=== PATIENT | female | born 1950 | race Caucasian/White ===

== ENCOUNTER → 2018-02-23 | Outpatient (CLI) | payer MEDICARE ==
--- NOTE | 2018-02-24 14:12 | MM ---
Reason for exam: screening (asymptomatic). Last mammogram was performed 2 years and 4 months ago. History: Patient is postmenopausal and has history of endometrial cancer at age 32. Physical Findings: A clinical breast exam by your physician is recommended on an annual basis and results should be correlated with mammographic findings. MG Screening Mammo w CAD Bilateral CC and MLO view(s) were taken. Prior study comparison: November 07, 2015, bilateral MG screening mammo w CAD. July 15, 2014, bilateral MG screening mammo w CAD. There are scattered fibroglandular densities. There are benign appearing round diffuse and regional calcifications bilaterally. There is no discrete abnormality. ASSESSMENT: Benign, BI-RAD 2 RECOMMENDATION: Routine screening mammogram of both breasts in 1 year.
== END ==
LOC: RADMAMWWP 07:54
PROVIDERS: ATTEND Obstetrics & Gynecology
DX: Z12.31 Encounter for screening mammogram for malignant neoplasm of breast (principal)
CPT/HCPCS: 77067

== ENCOUNTER → 2018-04-26 | Outpatient (CLI) | payer MEDICARE ==
--- NOTE | 2018-04-27 06:05 | BD ---
EXAMINATION TYPE: Axial Bone Density DATE OF EXAM: 04/26/2018 COMPARISON: 11/02/2015 CLINICAL HISTORY: Postmenopausal female. Height: 67 IN Weight: 252 LBS FRAX RISK QUESTIONS: Secondary Osteoporosis: 3. Menopause before 45: YES PARTIAL HYST AGE 32 RISK FACTORS HISTORY OF: Active: YES Postmenopausal woman: AGE 32 PARTIAL HYST MEDICATIONS: Additional Medications: BLOOD PRESSURE MEDS, DOTERRA VITAMINS EXAM MEASUREMENTS: Bone mineral densitometry was performed using the [employer] System. Bone mineral density as measured about the Lumbar spine is: ----- L1-L4(G/cm2): 1.326 T Score Values are as follows: ----- L2: 1.3 ----- L3: 1.6 ----- L4: 1.6 ----- L1-L4: 1.2 Bone mineral density has: Decreased -2.1% since study of: 11/02/2015 Bone mineral density about the R hip (g/cm2): 0.892 Bone mineral density about the L hip (g/cm2): 0.805 T Score values are as follows: -----R Neck: -1.1 -----L Neck: -1.7 -----R Total: 0.3 -----L Total: 0.1 Bone mineral density has: Decreased -0.4% since study of: IMPRESSION: Osteopenia (T Score between -2.5 and -1) persists femoral neck level in both hips. There remains slightly increased risk of fracture and the patient may be considered for treatment. Re-Screen 2-5 years. NOTE: T-SCORE=SD OF THE YOUNG ADULT MEAN.
== END ==
LOC: RADBDWWP 15:34
PROVIDERS: ATTEND Obstetrics & Gynecology
DX: M85.852 Other specified disorders of bone density and structure, left thigh (principal); M85.851 Other specified disorders of bone density and structure, right thigh
CPT/HCPCS: 77080

== ENCOUNTER → 2019-12-27 | Outpatient (CLI) | payer MEDICARE ==
--- NOTE | 2019-12-29 14:23 | MM ---
Reason for exam: screening (asymptomatic). Last mammogram was performed 1 year and 10 months ago. History: Patient is postmenopausal and has history of endometrial cancer at age 32. Physical Findings: A clinical breast exam by your physician is recommended on an annual basis and results should be correlated with mammographic findings. MG Screening Mammo w CAD Bilateral CC and MLO view(s) were taken. Prior study comparison: February 23, 2018, bilateral MG screening mammo w CAD. November 07, 2015, bilateral MG screening mammo w CAD. There are scattered fibroglandular densities. No significant changes when compared with prior studies. ASSESSMENT: Negative, BI-RAD 1 RECOMMENDATION: Routine screening mammogram of both breasts in 1 year.
== END | disposition home or self-care (01) ==
LOC: RADMAMWWP 15:44
PROVIDERS: ATTEND Obstetrics & Gynecology
DX: Z12.31 Encounter for screening mammogram for malignant neoplasm of breast (principal)
CPT/HCPCS: 77067

== ENCOUNTER → 2021-09-05 | Outpatient (CLI) | payer MEDICARE ==
--- NOTE | 2021-09-06 07:58 | BD ---
EXAMINATION TYPE: Axial Bone Density DATE OF EXAM: 09/05/2021 COMPARISON: NONE CLINICAL HISTORY: 70 year old Female. ICD-10 CODE: M81.0 OSTEOPOROSIS Height: 68 Weight: 256.2 FRAX RISK QUESTIONS: Alcohol (3 or more units per day): no Family History (Parent hip fracture): no Glucocorticoids (More than 3mos): no (Ex: prednisone, prednisolone, methylprednisolone, dexamethasone, and hydrocortisone). History of Fracture in Adulthood: no Secondary Osteoporosis: 1. Type 1 Diabetes: no 2. Hyperthyroidism: no 3. Menopause before 45: yes 4. Malnutrition: no 5. Chronic liver disease: no Rheumatoid Arthritis: no Current Tobacco Use: no RISK FACTORS HISTORY OF: Surgery to Spine/Hip(right/left)/Wrist (right/left): no Family History of Osteoporosis: no Active: no Diet low in dairy products/other sources of calcium: yes Postmenopausal woman: yes Lost more than 2 inches in height since high school: no MEDICATIONS: trulicity, metformin, blood pressure meds Additional History: EXAM MEASUREMENTS: Bone mineral densitometry was performed using the [employer] System. Bone mineral density as measured about the Lumbar spine is: ----- L1-L4(G/cm2): 1.341 T Score Values are as follows: ----- L1: 0.3 ----- L2: 1.1 ----- L3: 1.9 ----- L4: 1.9 ----- L1-L4: 1.3 Bone mineral density has: increased 1.2 % since study of: 04.26.2018 Bone mineral density about the R hip (g/cm2): 0.841 Bone mineral density about the L hip (g/cm2): 0.792 T Score values are as follows: -----R Neck: -1.4 -----L Neck: -1.8 -----R Total: 0.2 -----L Total: -0.8 Bone mineral density has: decreased -1.7 % since study of: 04.26.2018 FRAX%s: The graph provided illustrates a 9.8% chance for a major osteoporotic fx and a 1.7% chance fo r the hips probability for fx in 10 years time. IMPRESSION: Osteopenia (T Score between -2.5 and -1). There is slightly increased risk of fracture and the patient may be considered for treatment. Re-Screen 2-5 years. NOTE: T-SCORE=SD OF THE YOUNG ADULT MEAN.
== END | disposition home or self-care (01) ==
LOC: RADMAMWWP 07:26
PROVIDERS: ATTEND Pediatrics
DX: Z12.31 Encounter for screening mammogram for malignant neoplasm of breast (principal); M81.0 Age-related osteoporosis without current pathological fracture; Z78.0 Asymptomatic menopausal state
CPT/HCPCS: 77063; 77067; 77080

== ENCOUNTER 2022-10-16 06:02 | Day surgery (SDC) | payer MEDICARE ==
[2022-10-10 13:11] VITALS: BMI 39.5
[2022-10-16] MEDS ORDERED: LIDOCAINE 1% (10MG/ML) FOR IV START INTRADERMA PRN (06:11)
[2022-10-16] MEDS ORDERED: LACTATED RINGERS 1,000 ML IV SCH (06:11)
[2022-10-16 06:50] LABS: Glucose,Whole Blood 125 mg/dL (70-110)
[2022-10-16 06:53] VITALS: TEMP 96.9
[2022-10-16] MEDS ORDERED: PROPOFOL 10 MG/ML 20 ML VIAL IV ONE (07:10)
[2022-10-16 07:29] LABS: African American GFR (CKD) 85 (>60 ml/min/1.73 sqM); Anion Gap 6 mmol/L; Blood Urea Nitrogen 18 mg/dL (7-17); Calcium 8.6 mg/dL (8.4-10.2); Carbon Dioxide 31 mmol/L (22-30); Chloride 103 mmol/L (98-107); Glucose 121 mg/dL (74-99); Non-African American GFR(CKD) 73 (>60 ml/min/1.73 sqM); Potassium 3.9 mmol/L (3.5-5.1); Sodium 140 mmol/L (137-145)
[2022-10-16] MEDS ORDERED: COLCHICINE 0.6 MG EACH PO PRN (07:29)
[2022-10-16] MEDS ORDERED: SODIUM CHLORIDE 0.9% 1,000 ML IV SCH (07:30)
--- NOTE | 2022-10-16 07:33 | P.PCN ---
Date of Procedure: 10/16/22 Description of Procedure: Indication: Atrial fibrillation Procedure Description: After explaining the procedure to the patient, it's risk and complications, blood pressure, heart rate and O2 saturation were monitored. The throat was sprayed with Cetacaine. Patient received sedation per anesthesia department. The probe was introduced into the esophagus without difficulty. Images were obtained. Following that, the probe was removed. There was no immediate complication. Findings: Left atrial size is mildly dilated, left atrial appendage is normal. Left ventricle size and systolic function are normal. The mitral valve revealed mild thickening of the leaflets. Aortic valve is a tricuspid valve with mild atherosclerotic changes. Tricuspid and pulmonic valve are normal. Descending thoracic aorta is normal. No pericardial effusion was noted. Contrast bubble study revealed no shunting across the interatrial septum. Doppler: Pulse wave and color Doppler were obtained, and revealed moderate mitral and tricuspid regurgitation. There was no evidence of shunting across the intra- atrial septum. Conclusion: 1. Mildly dilated left atrium with normal appearance of the left atrial appendage 2. Normal left ventricle size and systolic function 3. Moderate mitral and tricuspid regurgitation 4. No shunting across the intra-atrial septum 5. No pericardial effusion Cardioversion: After performing a JOHNNY and obtaining sedated state a synchronized biphasic cardioversion using 150 J was performed with faith of sinus mechanism, there is no immediate complications.
[2022-10-16 08:26] VITALS: BP 136/70; PULSE 67; RESP 16
[2022-10-16] MEDS ORDERED: metFORMIN 500 MG TAB PO SCH (12:30)
[2022-10-16] MEDS ORDERED: APIXABAN 5 MG TAB PO SCH (21:00)
[2022-10-16] MEDS ORDERED: METOPROLOL TARTRATE 25 MG TAB PO SCH (21:00)
[2022-10-17] MEDS ORDERED: LOSARTAN 25 MG TAB PO SCH (09:00)
[2022-10-17] MEDS ORDERED: metFORMIN 500 MG TAB PO SCH (09:00)
[2022-10-17] MEDS ORDERED: POTASSIUM CHLORIDE ER 10 MEQ TAB.ER.PRT PO SCH (09:00)
[2022-10-17] MEDS ORDERED: LINAGLIPTIN 5 MG TABLET PO SCH (09:00)
== END 2022-10-16 08:41 | disposition home or self-care (01) ==
LOC: OR 06:02
PROVIDERS: ATTEND Internal Medicine Interventional Cardiology
DX: I08.1 Rheumatic disorders of both mitral and tricuspid valves (principal); I70.0 Atherosclerosis of aorta; I48.21 Permanent atrial fibrillation; I10 Essential (primary) hypertension; E11.9 Type 2 diabetes mellitus without complications; M10.9 Gout, unspecified; F17.210 Nicotine dependence, cigarettes, uncomplicated; Z79.01 Long term (current) use of anticoagulants; Z79.84 Long term (current) use of oral hypoglycemic drugs; Z79.899 Other long term (current) drug therapy
CPT/HCPCS: 93312; 93320; 93325; 92960; 80048; J2704

== ENCOUNTER → 2023-03-20 | Outpatient (CLI) | payer MEDICARE ==
--- NOTE | 2023-03-24 11:38 | MM ---
Reason for Exam: Screening (asymptomatic). Last mammogram was performed 1 year(s) and 7 month(s) ago. Patient History: Menarche at age 12. First Full-Term at age 20. Left ovary removed at age 32. Right ovary removed at age 32. Hysterectomy at age 32. Postmenopausal. Endometrial cancer, age 32. Risk Values: Bharati 5 year model risk: 1.6%. NCI Lifetime model risk: 4.1%. Prior Study Comparison: 02/23/2018 Bilateral Screening Mammogram, [facility]. 12/27/2019 Bilateral Screening Mammogram, [facility]. 09/05/2021 Bilateral MG 3D screening mammo w/cad, [facility]. Tissue Density: The breast tissue is almost entirely fat. Findings: Analyzed By CAD. Pattern appears symmetrical and stable. Scattered benign-appearing calcifications are present bilaterally. No significant interval changes No suspicious groups of microcalcifications, spiculated or lobular masses, architectural distortion or other secondary signs of malignancy are mammographically apparent. Overall Assessment: Negative, BI-RAD 1 Management: Screening Mammogram of both breasts in 1 year. A negative mammogram report should not preclude additional follow up of suspicious palpable abnormalities. Patient should continue monthly self breast exam. A clinical breast exam by your physician is recommended on an annual basis and results should be correlated with mammographic findings. Electronically signed and approved by: Jun Day D.O. Radiologis
== END | disposition home or self-care (01) ==
LOC: RADMAMWWP 15:03
PROVIDERS: ATTEND Obstetrics & Gynecology
DX: Z12.31 Encounter for screening mammogram for malignant neoplasm of breast (principal); Z78.0 Asymptomatic menopausal state
CPT/HCPCS: 77067

== ENCOUNTER → 2023-08-17 | Outpatient (CLI) | payer MEDICARE ==
--- NOTE | 2023-08-20 22:56 | P.PCN ---
Date of Procedure: 08/17/23 Operative Findings: Home sleep study report Date of services 08/17/2023 72-year-old female patient with history of snoring referred to me for sleep apnea evaluation based on the fact that the patient also has history of paroxysmal atrial fibrillation. No hypersomnia or sleepiness during the day. She has gained around 30 pounds over the past 1.5 years. Home sleep study was ordered accordingly. No signs of any cardiomyopathy and her cardiac rhythm is currently sinus. Pertinent physical findings The patient's weight is 263 pounds with a height of 5 feet and 8 inches and a body mass index of 39.3. Her Chariton score is at 6 Technical description The [employer] ApneaLink system was used to complete this home sleep study. This type III home sleep study. Total recording duration was 6 hours and 53 minutes. The study started at 10:52 PM and ended at 5:45 AM. This was an adequate study as the patient had a total of 6041 minutes of flow and oxygen saturation evaluation Results The respiratory analysis showed a total of 15 obstructive apneas and 35 obstructive hypopneas. The resulting AHI was 7.5. No positional change in the severity of her disease Oxygenation analysis No significant nocturnal oxygen saturation encountered. The patient's baseline pulse ox was 96% on room air oxygen when awake. Average pulse ox during sleep was 92% and the lowest pulse ox was 80% and the patient spent only 19 minutes of the sleep time below pulse ox of 89% Cardiac summary The average heart rate was 72 with a minimum heart rate of 61 and a maximum heart rate of 85 Assessment Mild MARGOT with an AHI of 7.5 Mild nocturnal oxygen saturation no hypersomnia or sleepiness in the patient's Chariton score was 3 Obesity with a BMI of 39 PAF Hypertension Diabetes mellitus Plan This is a case of mild obstructive sleep apnea with an AHI of 7.5. Based on the severity of the illness and presence of limited oxygen saturations overnight, I do not think the patient's sleep apnea is any significant bearing on her paroxysmal atrial fibrillation nor has any effect on her cardiovascular health. As such, I do not see the need for CPAP therapy at this point in time especially the patient has no major hypersomnia or sleepiness and the patient is clinically asymptomatic. Recommend weight loss. Losing weight in order of 5 to 10% of her current body weight should help her with her snoring and further improve her mild obstructive sleep apnea. This should be implemented along with maintaining a regular sleep schedule and optimizing her sleep hygiene measures. Of interest, she may consider an oral appliance that should be able also to help with her mild case of MARGOT. In summary, do not see the need for CPAP therapy at this point and this can be reevaluated in a years time should her condition gets worse or her sleep quality becomes impaired.
== END ==
LOC: 3 N SLEEP 10:30
PROVIDERS: ATTEND Internal Medicine Critical Care Medicine
DX: G47.33 Obstructive sleep apnea (adult) (pediatric) (principal); E11.9 Type 2 diabetes mellitus without complications; G47.36 Sleep related hypoventilation in conditions classified elsewhere; E66.9 Obesity, unspecified; I10 Essential (primary) hypertension; I48.0 Paroxysmal atrial fibrillation; Z68.39 Body mass index [BMI] 39.0-39.9, adult; Z79.899 Other long term (current) drug therapy; Z79.84 Long term (current) use of oral hypoglycemic drugs; Z79.01 Long term (current) use of anticoagulants

== ENCOUNTER → 2024-05-09 | Outpatient (CLI) | payer MEDICARE ==
--- NOTE | 2024-05-09 15:01 | MM ---
Reason for Exam: Screening (asymptomatic). Last mammogram was performed 1 year(s) and 1 month(s) ago. Patient History: Menarche at age 12. First Full-Term at age 20. Left ovary removed at age 32. Right ovary removed at age 32. Hysterectomy at age 32. Postmenopausal. Endometrial cancer, age 32. Risk Values: Bharati 5 year model risk: 1.6%. NCI Lifetime model risk: 3.9%. Prior Study Comparison: 12/27/2019 Bilateral Screening Mammogram, [facility]. 09/05/2021 Bilateral MG 3D screening mammo w/cad, [facility]. 03/20/2023 Bilateral MG screening mammo w CAD, [facility]. Tissue Density: The breasts are almost entirely fatty. Findings: Analyzed By CAD. Right breast: There is no suspicious group of microcalcifications or new suspicious mass. Benign-appearing calcifications right breast. Left breast: There is no suspicious group of microcalcifications or new suspicious mass. Benign-appearing calcifications left breast. Overall Assessment: Benign, BI-RAD 2 Management: Screening Mammogram of both breasts in [address] [facility] will attempt to contact patient to return for supplemental views and ultrasound if indicated. Patient should continue monthly self-breast exams. A clinical breast exam by your physician is recommended on an annual basis. This exam should not preclude additional follow-up of suspicious palpable abnormalities. Note on Bharati scores and lifetime risk: 1. A Bharati score greater than 3% is considered moderate risk. If this is the case, consider specialist referral to assess eligibility for a risk reducing agent. 2. If overall lifetime risk for the development of breast cancer is 20% or higher, the patient may qualify for future screening with alternating mammogram and breast MRI. [facility], , 05/09/2024 2:58 PM. Electronically signed and approved by: Benji Szymanski DO
== END | disposition home or self-care (01) ==
LOC: RADMAMWWP 13:34
PROVIDERS: ATTEND Internal Medicine
DX: Z12.31 Encounter for screening mammogram for malignant neoplasm of breast (principal); Z78.0 Asymptomatic menopausal state; Z90.722 Acquired absence of ovaries, bilateral
CPT/HCPCS: 77063; 77067

== ENCOUNTER → 2024-10-26 | Outpatient (CLI) | payer MEDICARE ==
--- NOTE | 2024-10-26 12:08 | BD ---
EXAMINATION TYPE: Axial Bone Density DATE OF EXAM: 10/26/2024 CLINICAL HISTORY: 74 years old Female. ICD-10 CODE: Z78.0 ASYMPTOMATIC MENOPAUSAL STATE , Additional History: Height: 67.0 Weight: 251.0 FRAX RISK QUESTIONS: Alcohol (3 or more units per day): no Family History (Parent hip fracture): no Glucocorticoids (More than 3mos): no (Ex: prednisone, prednisolone, methylprednisolone, dexamethasone, and hydrocortisone). History of Fracture in Adulthood: no Secondary Osteoporosis: 1. Type 1 Diabetes: no 2. Hyperthyroidism: no 3. Menopause before 45: yes 4. Malnutrition: no 5. Chronic liver disease: no Rheumatoid Arthritis: no Current Tobacco Use: no RISK FACTORS HISTORY OF: Hip Fracture (Right/Left): no Spine Fracture: no History of Wrist Fracture: no Surgery to Spine/Hip(right/left)/Wrist (right/left): no MEDICATIONS: Thyroid Medications: no Osteoporosis Medications: no EXAM MEASUREMENTS: Bone mineral densitometry was performed using the [employer] System. Bone mineral density as measured about the Lumbar spine is: ----- L1-L4(G/cm2): 1.328 T Score Values are as follows: ----- L1: 0.6 ----- L2: 0.9 ----- L3: 1.9 ----- L4: 1.4 ----- L1-L4: 1.2 Z Score Values are as follows: ----- L1: 1.1 ----- L2: 1.4 ----- L3: 2.5 ----- L4: 2.0 ----- L1-L4: 1.8 Bone mineral density has: decreased -1.0 % since study of: 09/05/2021 Bone mineral density about the R hip (g/cm2): 1.002 Bone mineral density about the L hip (g/cm2): 1.010 T Score values are as follows: -----R Neck: -1.4 -----L Neck: -1.7 -----R Total: 0.0 -----L Total: 0.0 Z Score values are as follows: -----R Neck: -0.3 -----L Neck: -0.6 -----R Total: 0.8 -----L Total: 0.9 Bone mineral density has: decreased -1.1 % since study of: 09/05/2021 FRAX%s: The graph provided illustrates a 10.4% chance for a major osteoporotic fx and a 2.0% chance f or the hips probability for fx in 10 years time. IMPRESSION: Normal (Values between +1 and -1 indicate normal bone mass). Consider repeating this study in 5 year s or sooner if there is some new clinical indication. NOTE: T-SCORE=SD OF THE YOUNG ADULT MEAN. [facility], , 10/26/2024 12:05 PM
== END | disposition home or self-care (01) ==
LOC: RADBDWWP 10:31
PROVIDERS: ATTEND Internal Medicine
DX: M85.89 Other specified disorders of bone density and structure, multiple sites (principal); Z78.0 Asymptomatic menopausal state
CPT/HCPCS: 77080